=== PATIENT | female | born 1990 | race Caucasian/White ===

== ENCOUNTER → 2017-06-21 | Outpatient (CLI) | payer OTHER, BC ==
[~2017-06-21] MED LIST: Citalopram HBr20 MG PO; MELO7.5 PO; RIZATRIPTAN10 MG PO; TOPI100 PO; TROKENDI XR100 MG PO
[2017-06-21 13:47] LABS: Alanine Aminotransfer (ALT/SGP 37 U/L (12-78); Albumin, Blood 3.4 g/dL (3.4-5.0); Albumin/Globulin Ratio 0.9 (0.8-1.8); Alk Phos 61 U/L (50-136); Anion Gap 6 mmol/L (6-16); Aspartate Aminotrans (AST/SGOT 23 U/L (12-37); Bilirubin, Total 0.4 mg/dL (0.1-1.0); Blood Urea Nitrogen 15 mg/dL (8-24); Bun/Creatinine Ratio 24.9 (12.0-20.0); CHOL/HDL RATIO 2.9; CO2, Blood 26 mmol/L (21-32); Calcium, Blood 8.3 mg/dL (8.5-10.1); Chloride, Blood 108 mmol/L (98-108); Cholesterol 144 mg/dL (50-200); Globulin, Blood 3.6 g/dL (2.2-4.0); Glomerular Filtration Rate >60 (60-); Glucose, Blood 108 mg/dL (70-99); HDL Cholesterol 49 mg/dL (>39); LDL/HDL RATIO 1.4; Low Density Lipoprotein Chol 69 mg/dL (0-110); Sodium, Blood 140 mmol/L (136-145); Triglycerides 128 mg/dL (30-140); Very Low Density Lipoprot Chol 25 mg/dL (6-28)
== END | disposition home or self-care (01) ==
LOC: LAB SHORT 09:40 → LAB 09:40
PROVIDERS: Hospitalist
DX: Z00.00 Encounter for general adult medical examination without abnormal findings (principal)
CPT/HCPCS: 80053; 80061

== ENCOUNTER → 2017-12-27 | Outpatient (CLI) | payer OTHER, BC ==
[2017-12-27 16:50] LABS: Source, Urine Clean Catch
[2017-12-27 18:10] LABS: Appearance, Urine Hazy (Clear); Bilirubin, Urine Neg (Neg); Blood, Urine 5+ (Neg); Color, Urine Yellow (P-Yellow); Glucose Qualitative, Urine Neg (Neg); Ketones, Urine 1+ (Neg); Leukocyte Esterase, Urine 2+ (Neg); Nitrite, Urine Pos (Neg); Protein, Urine 3+ (Neg); Specific Gravity, Urine 1.025 (1.003-1.022); Urobilinogen, Urine NORM (Normal)
[2017-12-27 18:45] LABS: White Blood Cells, Urine 50-100 /hpf (0-5)
[2017-12-27 18:46] LABS: Red Blood Cells, Urine 25-50 /hpf (0-2)
[2017-12-27 18:47] LABS: Calcium Oxalate Crystals Many /hpf
[2017-12-27 18:48] LABS: Bacteria Mod /hpf; Squamous Epithelial Cells Few /hpf (Few); Transitional Epithelial Cells Few /hpf (0-Rare)
== END | disposition home or self-care (01) ==
LOC: LAB 16:45 → LAB SHORT 16:45
PROVIDERS: Obstetrics & Gynecology
DX: R82.998 Other abnormal findings in urine (principal)
CPT/HCPCS: 81001; 87077; 87086; 87186

== ENCOUNTER → 2018-07-29 | Outpatient (CLI) | payer BC, OTHER | END | disposition home or self-care (01) | LOC: LAB 17:47 → LAB SHORT 17:47 | DX: N39.0 Urinary tract infection, site not specified (principal) | CPT/HCPCS: 87077; 87086; 87186 ==

== ENCOUNTER 2020-08-26 09:14 | Day surgery (SDC) | payer OTHER ==
[~2020-08-26] VITALS: Ht 162.6 cm; Wt 140.5 kg
[2020-08-26] MEDS ORDERED: SERT50 PO (09:43)
[2020-08-26] MEDS ORDERED: PROBIOTIC1 EA13 (09:44)
[2020-08-26] MEDS ORDERED: Doxycycline Mo100 M1 (09:44)
--- NOTE | 2020-08-26 10:01 | NUR ---
08/26/20 1001 Mary Lynne FIRST ATTEMPT MISSED BY RN IN THE RIGHT HAND. SECOND ATTEMPT SUCCESSFUL IN LEFT HAND BY RN.
== END 2020-08-26 11:03 | disposition home or self-care (01) ==
LOC: ORSCSDS 09:14
PROVIDERS: Internal Medicine Gastroenterology
PROC: 0DB68ZX Excision of Stomach, Via Natural or Artificial Opening Endoscopic, Diagnostic (ICD-10-PCS; principal; 2020-08-26 10:30)
PROC: 0DB58ZX Excision of Esophagus, Via Natural or Artificial Opening Endoscopic, Diagnostic (ICD-10-PCS; principal; 2020-08-26 10:30)
PROC: 0DB98ZX Excision of Duodenum, Via Natural or Artificial Opening Endoscopic, Diagnostic (ICD-10-PCS; principal; 2020-08-26 10:30)
DX: K21.9 Gastro-esophageal reflux disease without esophagitis (principal); R19.7 Diarrhea, unspecified; R07.89 Other chest pain; R06.6 Hiccough; Z79.899 Other long term (current) drug therapy
CPT/HCPCS: 88305; 88342; J2704; J7120

== ENCOUNTER 2024-05-02 06:07 | Day surgery (SDC) | payer BC ==
[~2024-05-02] VITALS: Ht 165.1 cm; Wt 138.8 kg
[2024-05-02] VITALS (11 sets, daily range): BP systolic 102–128; BP diastolic 49–90
[~2024-05-02 06:07] MED LIST changes: +ACYC400 PO; +Doxycycline Mo100 M1; +OMEP20ER PO; +ONDA4 PO; +PROBIOTIC1 EA13; +RIZATRIPTAN10 MG SL; +SERT100 PO
[2024-05-02] MEDS ORDERED: Lactated Ringer's 1,000 ML IV SCH (06:20)
[2024-05-02] MEDS ORDERED: propofoL 20 ML IV ONE (06:58)
[2024-05-02] MEDS ORDERED: Midazolam HCl 1MG / ML 2ML Vial ONE (06:58)
[2024-05-02] MEDS ORDERED: Rocuronium Bromide 10 MG/ML 5ML Injection IV ONE ×2 (06:58→07:00)
[2024-05-02] MEDS ORDERED: FentaNYL Citrate 50 MCG/ML 2 ML Injection ONE (06:58)
[2024-05-02] MEDS ORDERED: propofoL 60 ML IV ONE (07:02)
[2024-05-02] MEDS ORDERED: Lidocaine HCl 1% 30 ML SDV ONE (07:20)
[2024-05-02] MEDS ORDERED: Bupivacaine 0.5% HCl 5 MG/ML 30MLVIAL ONE (07:20)
[2024-05-02] MEDS ORDERED: Dexamethasone Sod Phos 10 MG/ML 1ML VIAL ONE (07:33)
[2024-05-02] MEDS ORDERED: CeFAZolin Sodium 1000 mg Vial ONE (07:33)
[2024-05-02] MEDS ORDERED: Ondansetron HCl 2 MG / ML 2ML Vial ONE (07:33)
[2024-05-02] MEDS ORDERED: Ketorolac Tromethamine 30mg Vial ONE (07:42)
[2024-05-02] MEDS ORDERED: Sugammadex Sodium 200 MG/2ML SDV (100 MG/ML) ONE (07:42)
[2024-05-02] MEDS ORDERED: HYDROcodone 5-APAP 325 TAB PO PRN (08:15)
[2024-05-02] MEDS ORDERED: Scopolamine Hydrobromide Patch TOP ONE (08:25)
--- NOTE | 2024-05-02 08:55 | NUR ---
05/02/24 0855 Lulu Bone 0735 3G ANCEF GIVEN IVPB BY [email or web address]
--- NOTE | 2024-05-02 09:31 | NUR ---
Discharge instructions reviewed with patient. Patient verbalizes understanding. Copy given to patient to take home. ALL BELONGINGS RETURNED TO PT. PT TOLERATED FLUIDS AND CRACKERS WELL. Discharged via wheelchair to private car for ride home.
== END 2024-05-02 09:30 | disposition home or self-care (01) ==
LOC: ORSCMMR 06:07 → ORD 07:30 → ORSCMMR 09:30
PROVIDERS: Surgery
PROC: 0JB90ZZ Excision of Buttock Subcutaneous Tissue and Fascia, Open Approach (ICD-10-PCS; principal; 2024-05-02 07:30)
DX: L05.91 Pilonidal cyst without abscess (principal); R73.9 Hyperglycemia, unspecified; F32.9 Major depressive disorder, single episode, unspecified; J45.909 Unspecified asthma, uncomplicated; K21.9 Gastro-esophageal reflux disease without esophagitis; E66.9 Obesity, unspecified; Z68.43 Body mass index [BMI] 50.0-59.9, adult; Z79.899 Other long term (current) drug therapy
CPT/HCPCS: 88304; A9270; J0690; J1100; J1885; J2250; J2405; J2704; J3010; J7120

== ENCOUNTER → 2024-06-16 | Outpatient (CLI) | payer BC ==
[2024-06-16 20:00] LABS: Bun/Creatinine Ratio 17.6 (12.0-20.0); Creatinine, Blood 0.57 mg/dL (0.40-1.00); Potassium, Blood 3.9 mmol/L (3.5-5.5)
== END ==
LOC: LAB 17:41 → LAB SHORT 17:41
PROVIDERS: Hospitalist
DX: E66.01 Morbid (severe) obesity due to excess calories (principal)
CPT/HCPCS: 80048